=== PATIENT | female | born 1945 | race Caucasian/White ===

== ENCOUNTER 2021-10-01 10:47 | Emergency (ER) | payer MEDICAID, MEDICARE ==
[~2021-10-01] VITALS: Ht 162.6 cm; Wt 53.4 kg
[2021-10-01] MEDS ORDERED: MORPHINE SULFATE 4 MG/ML DISP.SYRIN. IV ONE ×2 (11:45→13:45)
[2021-10-01] MEDS ORDERED: ONDANSETRON PF 4 MG/2 ML VIAL. IVP ONE (11:45)
--- NOTE | 2021-10-01 12:03 | EKG ---
[address] [address] Test Date: 2021-10-01 Test Time: 11:54:20 Pat Name: JEFFRY GILBERT Department: Room: Gender: F Uptwist Spinner: JENNIFER : 1945 Requested By: TRISHA KING Order Number: [id number] Reading MD: Azael Dumont MD Measurements Intervals [place] Rate: 100 P: 44 NV: 206 QRS: -23 QRSD: 86 T: 58 QT: 364 QTc: 473 Interpretive Statements SINUS RHYTHM PROLONGED NV INTERVAL Electronically Signed On 10-02-2021 8:21:26 [employer] by Azael Dumont MD
--- NOTE | 2021-10-01 12:16 | PHYS DOC ---
Past History Past Surgical History: No Surgical History (TRISHA KING APRN) Alcohol Use: Rarely (TRISHA KING APRN) General Adult EDM: Chief Complaint: HIP PAIN HPI: HPI: Patient is a 76-year-old female presents after a fall at home. Patient states last night she was getting up out of her chair when she tripped and fell on her shoes. Patient states she attempted to stand up but had to sit back down due to the pain in her right hip. Patient reports that she laid on the floor all night until this morning when she was able to call EMS. Patient has an abrasion to the right side of her forehead as well. Denies loss of consciousness. Patient can recall the incident. Denies blood thinners. Denies taking anything for pain prior to arrival. Patient's pain is 8/10. (TRISHA KING APRN) Review of Systems: Review of Systems: ROS At least 10 ROS systems have been reviewed and are negative except as documented in the HPI. General: Negative except as outlined in HPI above. Skin: Negative except as outlined in HPI above. HEENT: Negative except as outlined in HPI above. Neck: Negative except as outlined in HPI above. Respiratory: Negative except as outlined in HPI above.. Cardiovascular: Negative except as outlined in HPI above. Abdomen: Negative except as outlined in HPI above. : Negative except as outlined in HPI above. Back/MSK: Negative except as outlined in HPI above. Neuro: Negative except as outlined in HPI above. Psych: Negative except as outlined in HPI above. (TRISHA KING APRN) Current Medications: Current Meds: Current Medications Medications (Trade) Dose Ordered Sig/Anjelica Start Time Stop Time Status Last Admin Dose Admin Morphine Sulfate (Morphine 4mg Syringe) 4 mg 1X ONCE 10/01/21 11:45 10/01/21 11:49 DC 10/01/21 11:45 4 MG Ondansetron HCl (Zofran) 4 mg 1X ONCE 10/01/21 11:45 10/01/21 11:49 DC 10/01/21 11:45 4 MG (TRISHA KING APRN) Allergies: Allergies: Allergies Coded Allergies Type Severity Reaction Last Updated Verified phenol Allergy Unknown 10/01/21 Yes (TRISHA KING APRN) Physical Exam: PE: Constitutional: Well developed, well nourished, no acute distress, non-toxic appearance. [] HENT: Normocephalic, atraumatic, bilateral external ears normal, oropharynx moist, no oral exudates, nose normal. [] Eyes: PERRLA, EOMI, conjunctiva normal, no discharge. [] Neck: Normal range of motion, no tenderness, supple, no stridor. [] Cardiovascular:Heart rate regular rhythm, no murmur [] Lungs & Thorax: Bilateral breath sounds clear to auscultation [] Abdomen: Bowel sounds normal, soft, no tenderness, no masses, no pulsatile masses. [] Skin: Abrasion, right forehead. Back: Right-sided, lumbar tenderness, no CVA tenderness. [] Extremities: Right leg and hip pain, pedal pulses intact, no internal rotation seen. Unable to ambulate. Neurologic: Alert and oriented X 3, normal motor function, normal sensory function, no focal deficits noted. [] Psychologic: Affect normal, judgement normal, mood normal. [] (TRISHA KING APRN) Current Patient Data: Vital Signs: Vital Signs Date Time Temp Pulse Resp B/P (MAP) Pulse Ox O2 Delivery O2 Flow Rate FiO2 10/01/21 11:45 16 10/01/21 11:02 98.2 99 137/71 (93) 96 Room Air (TRISHA KING APRN) EKG: EKG: Sinus rhythm. Heart rate [address] Ackerman at 1202. No STEMI. (TRISHA KING APRN) Radiology/Procedures: Radiology/Procedures: []XR RIGHT HIP (WITH AP PELVIS) 2 VIEWS Clinical indications: Reason: FALL /pain. Findings: There is a subcapital right femoral neck fracture with resultant varus deformity. There is mild impaction of the fracture and there is minimal superior displacement of the neck with respect to the head. No dislocation of the right hip joint is seen. No lytic process is evident. No acute fracture or diastases of the pelvic bones is seen. IMPRESSION: Subcapital right femoral neck fracture. Electronically signed by: Lc Nolasco MD (10/01/2021 12:59 PM) [id number] Three-view lumbar spine series Clinical indications: Fall and pain. FINDINGS: The transverse processes are intact. No compression fracture or discitis or lytic process or anterolisthesis is seen. There is moderate degenerative disc space narrowing and mild degenerative endplate spurring at L4- 5 and L5-S1. There is mild degenerative endplate spurring at L2-3 and L3-4. No anterolisthesis is apparent. IMPRESSION: No acute compression fracture. Degenerative lumbar spondylosis. Electronically signed by: Lc Nolasco MD (10/01/2021 1:01 PM) [id number] EXAM: CT HEAD WITHOUT IV CONTRAST CLINICAL HISTORY: Reason: FALL / Spl. Instructions: / History: COMPARISON: None. TECHNIQUE: Routine CT of the head without contrast. Soft tissues and bone windows were reviewed. PQRS compliance statement - One or more of the following individualized dose reduction techniques were utilized for this study: 1. Automated exposure control 2. Adjustment of the mA and/or kV according to patient size 3. Use of iterative reconstruction technique FINDINGS: There is no evidence of hemorrhage, mass or extra-axial fluid collection. Ventura-white differentiation is maintained with no evidence of edema. There is no mass effect or shift of the intracranial structures. The ventricles, basilar cisterns and cortical sulci are normal in size and configuration for the patients stated age. The cerebellum and brainstem are unremarkable. The calvarium demonstrates no evidence of fracture or focal lesion. There is normal aeration of the visualized paranasal sinuses and mastoid air cells. The visualized portions of the orbits are normal. IMPRESSION: No evidence for acute intracranial process. EXAM: CT CERVICAL SPINE WITHOUT IV CONTRAST CLINICAL HISTORY: Reason: FALL / Spl. Instructions: / History: COMPARISON: None available. TECHNIQUE: Helical CT of the cervical spine was performed. Axial, coronal and sagittal reformatted images were also performed. PQRS compliance statement - One or more of the following individualized dose reduction techniques were utilized for this study: 1. Automated exposure control 2. Adjustment of the mA and/or kV according to patient size 3. Use of iterative reconstruction technique FINDINGS: Vertebral body heights are preserved. No spondylolisthesis. Severe disc height loss at C5-6. Moderate severe disc height loss C6-7. Mild disc height loss C4-5 and C7-T1. Trace anterolisthesis of C7-T1. Multilevel facet degenerative changes are seen. IMPRESSION: 1. Multilevel spondylosis as above 2. Negative acute fracture or subluxation. Electronically signed by: Kenan Ramos MD (10/01/2021 12:50 PM) [facility] CT HEAD WITHOUT IV CONTRAST CLINICAL HISTORY: Reason: FALL / Spl. Instructions: / History: COMPARISON: None. TECHNIQUE: Routine CT of the head without contrast. Soft tissues and bone windows were reviewed. PQRS compliance statement - One or more of the following individualized dose reduction techniques were utilized for this study: 1. Automated exposure control 2. Adjustment of the mA and/or kV according to patient size 3. Use of iterative reconstruction technique FINDINGS: There is no evidence of hemorrhage, mass or extra-axial fluid collection. Ventura-white differentiation is maintained with no evidence of edema. There is no mass effect or shift of the intracranial structures. The ventricles, basilar cisterns and cortical sulci are normal in size and configuration for the patients stated age. The cerebellum and brainstem are unremarkable. The calvarium demonstrates no evidence of fracture or focal lesion. There is normal aeration of the visualized paranasal sinuses and mastoid air cells. The visualized portions of the orbits are normal. IMPRESSION: No evidence for acute intracranial process. EXAM: CT CERVICAL SPINE WITHOUT IV CONTRAST CLINICAL HISTORY: Reason: FALL / Spl. Instructions: / History: COMPARISON: None available. TECHNIQUE: Helical CT of the cervical spine was performed. Axial, coronal and sagittal reformatted images were also performed. PQRS compliance statement - One or more of the following individualized dose reduction techniques were utilized for this study: 1. Automated exposure control 2. Adjustment of the mA and/or kV according to patient size 3. Use of iterative reconstruction technique FINDINGS: Vertebral body heights are preserved. No spondylolisthesis. Severe disc height loss at C5-6. Moderate severe disc height loss C6-7. Mild disc height loss C4-5 and C7-T1. Trace anterolisthesis of C7-T1. Multilevel facet degenerative changes are seen. IMPRESSION: 1. Multilevel spondylosis as above 2. Negative acute fracture or subluxation. Electronically signed by: Kenan Ramos MD (10/01/2021 12:50 PM) [facility] (TRISHA KING APRN) Heart Score: C/O Chest Pain: No Risk Factors: Risk Factors: DM, Current or recent (<one month) smoker, HTN, HLP, family history of CAD, obesity. Risk Scores: Score 0 - 3: 2.5% MACE over next 6 weeks - Discharge Home Score 4 - 6: 20.3% MACE over next 6 weeks - Admit for Clinical Observation Score 7 - 10: 72.7% MACE over next 6 weeks - Early Invasive Strategies (TRISHA KING APRN) Course & Med Decision Making: Course & Med Decision Making Pertinent Labs and Imaging studies reviewed. (See chart for details) [] 76 female presents after a fall at home. Patient reports that she had been on the floor since last night and unable to ambulate on her own. Work-up in ER consisted of labs, urinalysis, CT head and cervical spine, CT abdomen and chest, right hip and pelvis x-ray. Patient was given morphine for pain. CT head and cervical spine unremarkable. CT abdomen and chest shows no acute abnormality. Right hip and pelvis x-ray shows a subcapital right femoral neck fracture. Patient given second dose of pain medication. Magnesium 1.4, patient given IV magnesium. CK, 1488. NS at 75ml per hour. Spoke with Dr. Castillo from Ortho who is going to consult patient. I contacted hospitalist, Dr. Matias, who will be admitting patient for right femoral neck fracture. Discussed admission plan with patient. (TRISHA KING APRN) Course & Med Decision Making I was the Attending physician on the above date of service of this patient. I consulted on case after midlevel practitioner raised concern about bladder incontinence. Immediate bed rest and imaging ordered with appropriate consultation to neurosurgery. I agree to plan of care that included hospital transfer to [facility] for MRI and specialist consultation Critical Care Time This patient required critical care. Due to the fact that the patient required a significant amount of one on one physician - patient contact time, ordering and review of studies, arranging urgent treatment with development of a management plan, evaluation of patients response to treatment with frequent reassessments, and discussions with other providers this patient required 35 minutes of critical care time. Critical care time was indicated due to the inherent instability and/or potential for instability in this patient. The critical care time that is allocated to this patient is above and beyond any time spent on any other billable procedures performed on this patient. Electronically signed, Natasha Ackerman DO (NATASHA ACKERMAN DO) Jose Disclaimer: Jose Disclaimer: This electronic medical record was generated, in whole or in part, using a voice recognition dictation system. (TRISHA KING APRN) Departure Departure: Impression: Primary Impression: Subcapital fracture of neck of right femur Qualified Codes: S72.011A - Unspecified intracapsular fracture of right femur, initial encounter for closed fracture Disposition: 02 SHORT TERM HOSPITAL Condition: STABLE Referrals: PCP,NO (PCP) TRISHA KING APRN Oct 01, 2021 12:16 NATASHA ACKERMAN DO Oct 05, 2021 06:25
[2021-10-01 12:38] LABS: BASO % 0 % (0-3); EOS % 0 % (0-3); HEMATOCRIT 35.6 % (36.0-47.0); HEMOGLOBIN 12.2 g/dL (12.0-15.5); LYMPH # 0.4 x10^3/uL (1.0-4.8); LYMPH % 3 % (24-48); MEAN CORPUSCULAR HEMOGLOBIN 35 pg (25-35); MEAN CORPUSCULAR HGB CONC 34 g/dL (31-37); MEAN CORPUSCULAR VOLUME 102 fL (79-100); MONO # 0.7 x10^3/uL (0.0-1.1); MONO % 6 % (0-9); NEUT # 11.9 x10^3uL (1.8-7.7); NEUT % 92 % (31-73); PLATELET COUNT 232 x10^3/uL (140-400); RED BLOOD COUNT 3.47 x10^6/uL (3.50-5.40); RED CELL DISTRIBUTION WIDTH 12.9 % (11.5-14.5)
[2021-10-01 12:40] LABS: CALCIUM 9.1 mg/dL (8.5-10.1); CREATININE 0.4 mg/dL (0.6-1.0); GFR 155.2; MAGNESIUM 1.5 mg/dL (1.8-2.4); POTASSIUM 4.3 mmol/L (3.5-5.1)
--- NOTE | 2021-10-01 12:53 | RAD ---
EXAM: CT HEAD WITHOUT IV CONTRAST CLINICAL HISTORY: Reason: FALL / Spl. Instructions: / History: COMPARISON: None. TECHNIQUE: Routine CT of the head without contrast. Soft tissues and bone windows were reviewed. PQRS compliance statement - One or more of the following individualized dose reduction techniques wer e utilized for this study: 1. Automated exposure control 2. Adjustment of the mA and/or kV according to patient size 3. Use of iterative reconstruction technique FINDINGS: There is no evidence of hemorrhage, mass or extra-axial fluid collection. Ventura-white differentiation is maintained with no evidence of edema. There is no mass effect or shift of the intracranial structures. The ventricles, basilar cisterns and cortical sulci are normal in size and configuration for the arsenio ents stated age. The cerebellum and brainstem are unremarkable. The calvarium demonstrates no evidence of fracture or focal lesion. There is normal aeration of the visualized paranasal sinuses and mastoid air cells. The visualized portions of the orbits are normal. IMPRESSION: No evidence for acute intracranial process. EXAM: CT CERVICAL SPINE WITHOUT IV CONTRAST CLINICAL HISTORY: Reason: FALL / Spl. Instructions: / History: COMPARISON: None available. TECHNIQUE: Helical CT of the cervical spine was performed. Axial, coronal and sagittal reformatted im ages were also performed. PQRS compliance statement - One or more of the following individualized dose reduction techniques wer e utilized for this study: 1. Automated exposure control 2. Adjustment of the mA and/or kV according to patient size 3. Use of iterative reconstruction technique FINDINGS: Vertebral body heights are preserved. No spondylolisthesis. Severe disc height loss at C5-6. Moderate severe disc height loss C6-7. Mild disc height loss C4-5 an d C7-T1. Trace anterolisthesis of C7-T1. Multilevel facet degenerative changes are seen. IMPRESSION: 1. Multilevel spondylosis as above 2. Negative acute fracture or subluxation. Electronically signed by: Kenan Ramos MD (10/01/2021 12:50 PM) JOEY
--- NOTE | 2021-10-01 13:00 | RAD ---
XR CHEST 1V CLINICAL INDICATIONS: Reason: FALL /right hip fracture. Preoperative study. The patient is 76 years o ld COMPARISON: None available. Findings: There is increased density of the right infrahilar area related to rotation. No acute lung infiltrate or pleural effusion or pulmonary edema or lung mass or pneumothorax is seen. The heart si ze, pulmonary vasculature, mediastinum and both brigitte are unremarkable given AP magnification and rota tion. No obvious rib deformity is apparent. IMPRESSION: No acute radiographic abnormality is seen. Electronically signed by: Lc Nolasco MD (10/01/2021 12:57 PM) [id number]
--- NOTE | 2021-10-01 13:01 | RAD ---
XR RIGHT HIP (WITH AP PELVIS) 2 VIEWS Clinical indications: Reason: FALL /pain. Findings: There is a subcapital right femoral neck fracture with resultant varus deformity. There is mild impaction of the fracture and there is minimal superior displacement of the neck with respect t o the head. No dislocation of the right hip joint is seen. No lytic process is evident. No acute frac ture or diastases of the pelvic bones is seen. IMPRESSION: Subcapital right femoral neck fracture. Electronically signed by: Lc Nolasco MD (10/01/2021 12:59 PM) [id number]
--- NOTE | 2021-10-01 13:03 | RAD ---
Three-view lumbar spine series Clinical indications: Fall and pain. FINDINGS: The transverse processes are intact. No compression fracture or discitis or lytic process o r anterolisthesis is seen. There is moderate degenerative disc space narrowing and mild degenerative endplate spurring at L4-5 and L5-S1. There is mild degenerative endplate spurring at L2-3 and L3-4. N o anterolisthesis is apparent. IMPRESSION: No acute compression fracture. Degenerative lumbar spondylosis. Electronically signed by: Lc Nolasco MD (10/01/2021 1:01 PM) [id number]
[2021-10-01] MEDS ORDERED: MAGNESIUM SULFATE 2GM 50 ML IV ONE ×2 (13:15)
[2021-10-01] MEDS ORDERED: IV NORMAL SALINE 1,000ML 1,000 ML IV ONE (13:30)
[2021-10-01 14:38] LABS: COLOR,URINE YELLOW
[2021-10-01 14:39] LABS: BACTERIA,URINE 0 /HPF (0-FEW); CLARITY,URINE HAZY; GLUCOSE,URINE NEG (NEG); NITRITE,URINE NEG (NEG); SQUAMOUS EPITHELIAL CELL,UR FEW /LPF; UROBILINOGEN,URINE 0.2 mg/dL (0.2 mg/dL); WBC,URINE OCC /HPF (0-4)
[2021-10-01 14:51] LABS: INFLUENZA A PATIENT NEGATIVE (NEGATIVE); INFLUENZA B PATIENT NEGATIVE (NEGATIVE)
[2021-10-01 16:04] VITALS: BP 115/89
== END 2021-10-01 16:46 | disposition short-term general hospital (02) ==
LOC: ER 10:47
DX: U07.1 COVID-19 (principal); S72.011A Unspecified intracapsular fracture of right femur, initial encounter for closed fracture; S00.81XA Abrasion of other part of head, initial encounter; Z20.822 Contact with and (suspected) exposure to COVID-19; Z88.8 Allergy status to other drugs, medicaments and biological substances; W01.0XXA Fall on same level from slipping, tripping and stumbling without subsequent striking against object, initial encounter; Y93.89 Activity, other specified; Y92.098 Other place in other non-institutional residence as the place of occurrence of the external cause; Y99.8 Other external cause status
CPT/HCPCS: 36415; 70450; 71045; 72100; 72125; 73502; 80048; 81001; 82550; 83735; 84484; 85025; 87428; 93005; 96361; 96374; 96375; 96376; 99291; C9803; J2270; J2405; J3475; J7030; U0003; 99285